=== PATIENT | male | born 1960 | race Two or more races ===

== ENCOUNTER 2022-08-18 05:40 | Day surgery (SDC) | payer OTHER ==
[~2022-08-18] VITALS: Ht 172.7 cm; Wt 72.6 kg
[2022-08-18] MEDS ORDERED: MIRALAX17 GM PO (09:13)
[2022-08-18] MEDS ORDERED: TRAMADOL HCL50 MG PO (09:13)
[2022-08-18] MEDS ORDERED: TYLENOL ARTHRI650 MG PO (09:13)
== END 2022-08-18 12:35 | disposition home or self-care (01) ==
LOC: CIR.AMB 05:40
PROVIDERS: ATTEND Surgery
DX: K40.90 Unilateral inguinal hernia, without obstruction or gangrene, not specified as recurrent (principal); K42.9 Umbilical hernia without obstruction or gangrene; Z88.6 Allergy status to analgesic agent; Z20.822 Contact with and (suspected) exposure to COVID-19; E78.00 Pure hypercholesterolemia, unspecified; Z86.16 Personal history of COVID-19
CPT/HCPCS: 49650; 49591; C1781